=== PATIENT | female | born 1975 ===

== ENCOUNTER 2023-07-20 10:30 | Outpatient (CLI) | payer MEDICAID, SELFPAY ==
[2023-07-20 10:50] VITALS: BMI 35.4
--- NOTE | 2023-07-20 10:50 | ECG_ITS ---
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 Interpretive Statements NAME OF STUDY: LEXISCAN SESTAMIBI STRESS TEST INDICATION: [Atypical Chest Pain] Procedure: At the baseline, the blood pressure was 120/83 mmHg with a heart rate of 74 bpm. The electrocardiogram showed normal sinus rhythm, normal axis with normal ST and T's. The Lexiscan was infused over a period of 20 seconds. A total of 0.4 mg of Lexiscan was infused. The stress phase was continued for a total of 5 minutes. Heart rate was at the end of stress phase was 84 bpm and a blood pressure of 120/76 mmHg. The EKG at the peak infusion revealed normal sinus rhythm with no significant ST-T wave changes. Sestamibi was injected 20 seconds after the Lexiscan infusion. Blood pressure at the end of recovery phase was 116/77 mmHg with a heart rate of 83 bpm. Conclusion: 1. Normal EKG response to Lexiscan infusion 2. No Lexiscan induced chest pain or cardiac arrhythmia. 3. Normal blood pressure and heart rate response. 4. Sestamibi/sestamibi perfusion scan pending; see separate report. Electronically Signed On 08-06-2023 8:49:40 CDT by Donte Torres M.D. [id number]
--- NOTE | 2023-07-20 10:51 | NMCV_ITS ---
NM dk perf SPECT r/s* [id number] Lor Carrasquillo Age: 48 Gender: F : 1975 Exam Date: 07/20/2023 11:22 Ordering Phys: Grant Rojas MD Technologist: JOSE JUAN Cannon Exam Location: [facility] Indications: CHEST PAIN STRESS TEST Please see separate stress test report in [facility] for full findings IMAGE PROTOCOL Rest/Stress 1 Lexiscan Day Radiopharmaceutical Dose (mCi) Administration Site Administered by Rest: Tc-99m 10.7 IV JOSE JUAN Gale Sestamibi Stress:Tc-99m 32.5 IV JOSE JUAN Gale Sestamibi Rest: 20-Jul-2023 60 Discovery 630 Stress: 20-Jul-2023 30 Discovery 630 0.4mg Lexiscan. Images obtained in supine and prone position. SPECT RESULTS Technical Quality: Excellent Raw Data Analysis: Normal Image Corrections: No attenuation or motion correction applied Summed Stress Score: 5 Summed Rest Score: 1 Summed Difference Score: 4 PERFUSION FINDINGS There is a small area of partially reversible perfusion defect of mild to moderate intensity seen in the apical lateral and anterolateral coombs. 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 Attenuation artifact can not be ruled out. FUNCTIONAL RESULTS (calculated via Gated SPECT) Stress Image LV EF (%): 72 Stress EDV (mL):85 TID: 0.96 Stress ESV (mL):24 FUNCTIONAL FINDINGS: There is normal left ventricular systolic function. IMPRESSIONS 1. Small area of prior infarct with minimal latesha-infarct ischemia is seen in the left circumflex artery territory. Attenuation artifact can not be ruled out 2. LV systolic function is normal Donte Torres MD (Electronically Signed) Final Date: 21 July 2023 09:32 S
[2023-07-20] MEDS: regadenoson 0.4 Mg/5 ml Syringe 0.400000000000000022 MG IVP (11:59)
[2023-07-20 12:10] VITALS: BP 116/77; PULSE 80
== END 2023-07-20 10:31 | disposition home or self-care (01) ==
PROVIDERS: PCP Internal Medicine; Visit Provider Internal Medicine
DX: R07.89 Other chest pain (principal)
CPT/HCPCS: 36415; 78452; 93017; 96374; A9500; J2785

== ENCOUNTER 2023-08-18 09:59 | Emergency (ER) | payer MEDICAID, SELFPAY ==
[2023-08-18 10:06] VITALS: BP 99/75; PULSE 82; RESP 16; TEMP 36.6; O2SAT 99
--- NOTE | 2023-08-18 10:10 | XRR_ITS ---
PROCEDURE INFORMATION: Exam: XR Chest Exam date and time: 08/18/2023 10:26 AM Age: 48 years old Clinical indication: Shortness of breath; Patient HX: SOB; Lt leg swelling; Lt arm tingling TECHNIQUE: Imaging protocol: Radiologic exam of the chest. Views: 1 view. COMPARISON: No relevant prior studies available. FINDINGS: Lungs: No focal consolidation. 1.4 cm apparent pulmonary nodule projecting over the lateral right middle lung field, with a 0.7 cm central calcification. Pleural spaces: No large pleural effusion. No distinct pneumothorax. Heart/Mediastinum: Cardiomediastinal silhouette is midline and normal in size. Bones/joints: No acute osseous findings. XR/XR chest 1V [id number] IMPRESSION: 1.4 cm apparent pulmonary nodule projecting over the lateral right middle lung field, with a 0.7 cm central calcification. Recommend follow-up noncontrast CT chest for further evaluation.
--- NOTE | 2023-08-18 10:11 | ECG_ITS ---
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 Measurements Intervals [place] Rate: 75 P: 36 NV: 179 QRS: 11 QRSD: 87 T: 33 QT: 369 QTc: 413 Interpretive Statements SINUS RHYTHM LOW QRS VOLTAGE IN PRECORDIAL LEADS [QRS DEFLECTION < 1.0 mV IN CHEST LEADS] No previous ECG available for comparison Electronically Signed On 08-18-2023 19:35:01 CDT by Ortega Bautista M.D. [id number]
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
[2023-08-18 10:39] LABS: Basophils # 0.1 10^3/uL (0.0-0.1); Basophils % 0.8 %; Eosinophils # 0.3 10^3/uL (0.0-0.8); Eosinophils % 4.4 %; Hematocrit 47.9 % (36-47); Lymphocytes # 1.8 10^3/uL (0.8-4.8); Lymphocytes % 24.1 %; Mean Corpuscular Hemoglobin 30.9 pg (27-33); Mean Corpuscular Volume 93.6 fl (85-98); Mean Platelet Volume 9.6 fL (7.4-10.4); Monocytes # 0.5 10^3/uL (0.2-0.9); Monocytes % 6.2 %; Neutrophils # 4.73 10^3/uL (1.8-7.7); Neutrophils % 63.4 %; Nucleated Red Blood Cells % 0 %; Platelet Count 417 10^3/cmm (157-399); Red Blood Count 5.12 10^6/uL (3.85-5.65); Red Cell Distribution Width 13.8 % (12.1-15.1); White Blood Count 7.46 10^3/uL (3.29-11.43)
[2023-08-18 10:47] VITALS: BP 99/75; PULSE 68; RESP 16; O2SAT 95
[2023-08-18 10:57] LABS: D Dimer 0.55 ug/mLFEU (0-0.59)
[2023-08-18 11:01] LABS: Lactic Sepsis W/Reflex 0.7 mmol/L (0.5-2.2)
[2023-08-18 11:04] LABS: Troponin(5th) Baseline 8 ng/L (0-10)
--- NOTE | 2023-08-18 11:05 | CTR_ITS ---
PROCEDURE INFORMATION: Exam: CTA Chest With Contrast Exam date and time: 08/18/2023 12:06 PM Age: 48 years old Clinical indication: Pain; Chest pressure; Additional info: Chest pain, elevated ddimer TECHNIQUE: Imaging protocol: Computed tomographic angiography of the chest with contrast. Exam focused on the arteries. 3D rendering (Not supervised by radiologist): MIP and/or 3D reconstructed images were created by the technologist. Radiation optimization: All CT scans at this facility use at least one of these dose optimization techniques: automated exposure control; mA and/or kV adjustment per patient size (includes targeted exams where dose is matched to clinical indication); or iterative reconstruction. Contrast material: OMNI 350; Contrast volume: 80 ml; Contrast route: INTRAVENOUS (IV); COMPARISON: CR (CHEST, ) 08/18/2023 10:26 AM RADIATION DOSE METRICS: Total DLP (mGy-cm): 455.13 FINDINGS: Pulmonary arteries: No evidence of pulmonary artery thromboembolism. Aorta: Mild scattered calcific disease of the aorta. Thyroid: Partially imaged thyroid is normal in appearance. Lungs: Mosaic attenuation pattern throughout the bilateral lungs may represent mild pulmonary edema. 1.5 cm pulmonary nodule located in the lateral right middle lobe. This nodule is mostly calcified with a thin rim of surrounding soft tissue density. 0.3 cm calcified granuloma in the lateral left upper lobe. Pleural spaces: No pleural effusion. No pneumothorax. Heart: Heart is normal in size. No pericardial effusion. Coronary arteries: Coronary artery calcifications. Lymph nodes: Multiple calcified right hilar lymph nodes. No pathologically enlarged suspicious lymphadenopathy. Bones/joints: No acute osseous findings. Soft tissues: Atypical nodular appearance of the right breast soft tissues. CT/CT angio chest PE protcl [id number] IMPRESSION: 1. No evidence of pulmonary artery thromboembolism. 2. Mosaic attenuation pattern throughout the bilateral lungs may represent mild pulmonary edema. 3. 1.5 cm pulmonary nodule located in the lateral right middle lobe. This nodule is mostly calcified with a thin rim of surrounding soft tissue density. This nodule is strongly favored to represent a benign mostly calcified granuloma. 4. Atypical nodular appearance of the right breast soft tissues. Recommend correlation with diagnostic mammography, if not recently obtained.
[2023-08-18 11:11] LABS: Alanine Aminotransferase 15 U/L (0-33); Alkaline Phosphatase 93 U/L (35-105); Anion Gap 14.8 (5-19); Aspartate Amino Transferase 19 U/L (0-32); Blood Urea Nitrogen 7 mg/dL (6-20); C Reactive Protein 16.8 mg/L (0.0-4.9); Calcium 9.9 mg/dL (8.5-10.5); Carbon Dioxide 26 mmol/L (22-29); Chloride 101 mmol/L (98-107); Creatinine Clr Calc Pharmacy 105.6482; Glomerular Filtration Rate 89.3 mL/min (90-130); Glucose 91 mg/dL (65-115); NT Pro B Type Natriuretic Pept 44 pg/mL (0-125); Osmolality Calculated 284 mOsm/kg (285-295); Potassium 3.8 mmol/L (3.5-5.1); Sodium 138 mmol/L (136-145); Total Bilirubin 0.3 mg/dL (0.15-1.2)
[2023-08-18] MEDS: iohexol 350 mg/mL 500 mL Btl (per mL) IV (12:08)
--- NOTE | 2023-08-18 12:11 | ECG_ITS ---
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 Measurements Intervals [place] Rate: 64 P: 38 NM: 191 QRS: 27 QRSD: 95 T: 39 QT: 405 QTc: 420 Interpretive Statements SINUS RHYTHM LOW QRS VOLTAGE IN PRECORDIAL LEADS [QRS DEFLECTION < 1.0 mV IN CHEST LEADS] Compared to ECG 08/18/2023 10:08:59 No significant changes Electronically Signed On 08-18-2023 20:00:14 CDT by Ortega Bautista M.D. [id number]
[2023-08-18 12:22] VITALS: BP 135/90; PULSE 70; RESP 16; O2SAT 95
--- NOTE | 2023-08-18 12:33 | USR_ITS ---
PROCEDURE INFORMATION: Exam: US Duplex Lower Extremity Veins, Bilateral Exam date and time: 08/18/2023 11:21 AM Age: 48 years old Clinical indication: Swelling (edema) of limb; Lower extremity, bilateral; Additional info: R/O dvt TECHNIQUE: Imaging protocol: Real-time duplex ultrasound of the bilateral extremities with 2-D carr scale, color Doppler flow and spectral waveform analysis including responses to compression and other maneuvers (when performed) with image documentation. Complete exam focused on the lower extremity veins. COMPARISON: No relevant prior studies available. FINDINGS: Right deep veins: Unremarkable. The common femoral, femoral, proximal profunda femoral and popliteal veins are patent without thrombus. Normal Doppler waveforms. Normal compressibility and/or augmentation response. Left deep veins: Unremarkable. The common femoral, femoral, proximal profunda femoral and popliteal veins are patent without thrombus. Normal Doppler waveforms. Normal compressibility and/or augmentation response. Superficial veins: Greater saphenous veins at the saphenofemoral junctions are patent bilaterally without thrombus. Soft tissues: Unremarkable. US/CV venous duplex [facility] [id number] IMPRESSION: No evidence of deep vein thrombosis.
[2023-08-18 13:08] LABS: Amphetamines Screen Urine Negative (Negative); Barbiturates Screen Urine Negative (Negative); Benzodiazepines Screen Urine Negative (Negative); Cocaine Screen Urine Negative (Negative); Opiate Screen Urine Negative (Negative); PCP Screen Urine Negative (Negative); THC Screen Urine Negative (Negative)
[2023-08-18 13:29] LABS: Bilirubin Urine Neg (Negative); Blood Urine Neg (Negative); Glucose Urine UA Norm (Normal); Ketones Urine Negative (Negative); Nitrate Urine Negative (Negative); Protein Urine Neg (Negative); Urine Appearance Clear (CLEAR); Urine Color Straw (Yellow); pH Urine 6 (5-7)
[2023-08-18 13:30] LABS: Add Urine Culture? No; Bacteria Urine TRACE /hpf; Leukocyte Esterase Urine Negative (Negative); Urobilinogen Urine Norm (Negative); WBC Urine RARE /hpf (0-5)
[2023-08-18 13:45] VITALS: BP 135/90; PULSE 70; RESP 16; TEMP 36.6; O2SAT 95
== END 2023-08-18 13:47 | disposition left against medical advice (07) ==
PROVIDERS: Emergency Provider Emergency Medicine; PCP Internal Medicine
DX: R07.9 Chest pain, unspecified (principal); J81.1 Chronic pulmonary edema; R60.0 Localized edema
CPT/HCPCS: 36415; 71045; 71275; 80053; 80306; 81001; 83605; 83880; 84484; 85025; 85378; 86140; 87040; 93005; 93970; 99285; Q9967

== ENCOUNTER 2023-09-12 13:56 | Outpatient (CLI) | payer MEDICAID, SELFPAY ==
--- NOTE | 2023-09-12 14:15 | USCV_ITS ---
Lor Carrasquillo Age: 48 Gender: F : 1975 Exam Date: 09/12/2023 14:18 Ordering Phys: Donte Torres M.D ([email or web address]) Technologist: CT Exam Location: [facility] [place] Indication: cp BP: 120 / 70 HR: 124 Rhythm: Sinus Technical Quality: Adequate MEASUREMENTS (Male / Female) Normal Values 2D ECHO LVOT Diameter 2.0 cm LV Ejection Fraction MOD 2C 66.6 % LV Ejection Fraction 2C AL 66.8 % LA Diameter 3.0 cm RA Systolic Volume 4C AL 24.3 ml RA Systolic Volume 4C MOD 23.2 ml LA Sys Volume AL 37.4 cm cubed LA Sys Volume Index AL 18.0 cm cubed/m squared Aorta at Sinotubular Diameter 2.5 cm IVC Diameter 1.5 cm M-MODE LA Ao Ratio MM 1.3 AV Cusp Separation MM 1.8 cm DOPPLER AV Peak Velocity 110.0 cm/s LVOT Peak Velocity 94.0 cm/s AV Area Cont Eq vti 2.5 cm squared AV Area Cont Eq pk 2.7 cm squared MV Peak Velocity 94.0 cm/s MV Area PHT 3.6 cm squared Mitral E to A Ratio 1.3 TR Peak Velocity 117.0 cm/s TR Peak Gradient 5.5 mmHg TV Peak E Velocity 88.0 cm/s Right Atrial Pressure 3.0 mmHg Pulmonary Artery Systolic Pressu 8.5 mmHg PV Peak Velocity 75.5 cm/s FINDINGS Left Ventricle Left ventricle is normal size. LV systolic function is normal with EF of 55 to 60%. No regional wall motion abnormalities are seen. Right Ventricle Normal in size and function Right Atrium Normal in size Left Atrium Normal-sized Mitral Valve Structurally normal mitral valve. Trace mitral regurgitation. Aortic Valve Structurally normal aortic valve. No significant stenosis or regurgitation. Tricuspid Valve Insufficient TR jet to evaluate RVSP. Pulmonic Valve Not well visualized Pericardium Normal Aorta Normal in size. IVC Appears to be normal CONCLUSIONS LV systolic function is normal with EF 55 to 60%. Trace mitral regurgitation No comparison studies are available. Donte Torres MD (Electronically Signed) Final Date: 26 September 2023 19:48 S
== END 2023-09-12 13:57 | disposition home or self-care (01) ==
LOC: RAD 13:56
PROVIDERS: PCP Internal Medicine; Visit Provider Internal Medicine
DX: R06.09 Other forms of dyspnea (principal); R07.9 Chest pain, unspecified
CPT/HCPCS: 93306

== ENCOUNTER 2023-12-12 10:27 | Outpatient (CLI) | payer MEDICAID, SELFPAY ==
[2023-12-12 10:47] LABS: Basophils # 0.1 10^3/uL (0.0-0.1); Basophils % 1.2 %; Eosinophils # 0.2 10^3/uL (0.0-0.8); Eosinophils % 3.2 %; Hematocrit 47.4 % (36-47); Lymphocytes # 1.9 10^3/uL (0.8-4.8); Lymphocytes % 24.8 %; Mean Corpuscular HGB Conc 31.9 g/dL (30-55); Mean Corpuscular Hemoglobin 30.4 pg (27-33); Mean Corpuscular Volume 95.4 fl (85-98); Mean Platelet Volume 9.9 fL (7.4-10.4); Monocytes # 0.4 10^3/uL (0.2-0.9); Monocytes % 5.9 %; Neutrophils # 4.78 10^3/uL (1.8-7.7); Neutrophils % 64.2 %; Nucleated Red Blood Cells % 0 %; Platelet Count 348 10^3/cmm (157-399); Red Blood Count 4.97 10^6/uL (3.85-5.65); Red Cell Distribution Width 14.6 % (12.1-15.1); White Blood Count 7.45 10^3/uL (3.29-11.43)
[2023-12-12 11:01] LABS: INR 1.02 (0.83-1.21); Prothrombin Time (Patient) 13.7 Seconds (12.0-15.1)
[2023-12-12 11:07] LABS: Blood Urea Nitrogen 11 mg/dL (6-20); Calcium 9.3 mg/dL (8.5-10.5); Carbon Dioxide 24 mmol/L (22-29); Chloride 106 mmol/L (98-107); Glomerular Filtration Rate 89.3 mL/min (90-130); Glucose 89 mg/dL (65-115); Osmolality Calculated 289 mOsm/kg (285-295); Sodium 140 mmol/L (136-145)
[2023-12-12 11:16] LABS: Anion Gap 15.1 (5-19); Potassium 5.1 mmol/L (3.5-5.1)
== END 2023-12-12 10:28 | disposition home or self-care (01) ==
LOC: LAB 10:28
PROVIDERS: PCP Internal Medicine; Visit Provider Internal Medicine
DX: R06.09 Other forms of dyspnea (principal); I20.0 Unstable angina; R58 Hemorrhage, not elsewhere classified
CPT/HCPCS: 36415; 80048; 85025; 85610

== ENCOUNTER 2023-12-19 06:04 | Outpatient (CLI) | payer MEDICAID, SELFPAY ==
[2023-12-19] VITALS (15 sets, daily range): BP systolic 119–160; BP diastolic 78–109; PULSE 60–70; RESP 12–18; TEMP 36.8; O2SAT 95–99; BMI 37.3
--- NOTE | 2023-12-19 06:00 | XACV_ITS ---
Exam Room: 2 Ht: 160 cm Wt: 96 kg BSA: 2.11 m2 Gender: Female : 1975 Any Known Allergies: Latex Exam Priority: Routine Procedure(s): Procedure Description: Diagnostic procedure Procedure Description: Left Heart Catheterization Procedure Description: Left ventriculography Procedure Description: Coronary Angiography Diagnostic Cath Status: Elective Diagnostic Findings * No significant disease noted in the Left Main, Left Anterior Descending, Right, or Circumflex coronary arteries. * Coronary angiography shows right dominance. Conclusions 1. No significant disease noted in the Left Main, Left Anterior Descending, Right, or Circumflex coronary arteries. 2. Normal left ventricular systolic function. Ejection fraction of 55%. Recommendations * Aggressive risk factor modification. * High intensity statin therapy. * Outpatient cardiology follow up in 2 weeks. Interventional RX Recommendation: medical therapy and/or counseling Diagnostic RX Recommendation: medical therapy and/or counseling Anticoagulation: Heparin Ventriculography Ejection Fraction: 55.0 % Pressures Phase:Rest AO : 130 / 81 ( 103 ) @ 9:21:00 AM 113 / 88 ( 101 ) @ 9:22:00 AM 129 / 82 ( 103 ) @ 9:27:00 AM 129 / 83 ( 103 ) @ 9:27:00 AM LV : 136 / 0 / 23 @ 9:26:00 AM 127 / 15 / 28 @ 9:26:00 AM 128 / 14 / 27 @ 9:27:00 AM Valves Phase:DefaultPhase AV : 0.0 @ 8:32:08 AM 0.0 @ 8:32:08 AM AV Mean Gradient: 0.0 @ 8:32:08 AM Clinical Evaluation EBL: 5mL-10mL Procedural Details Procedure Consent Obtained. Pre-Procedure Time Out. Identified patient by full name and date of as verbalized by the patient/guarantor. Does the consent match the physician's order: Yes. Inpatient/Outpatient History & Physical on Chart: Yes. Accurate & Complete Informed Consent: Yes. If H&P is completed, is and addenduem needed: No; If yes, is the addendum complete: N/A. Visualize and Verify Site with Patient/Guarantor: N/A. Relevant Radiology Images available: Yes. Pre-op teaching completed and patient verbalized understanding. The risks, benefits, and alternatives of sedation and/or procedure were discussed by physician. The patient agrees to continue. Procedure started. Physician arrived. 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 Chest Pain Symptom Assessment: Typical Angina Symptoms. Correct patient, site and procedure confirmed by cath team. Current diagnosis: Chest Pain. PERRLA. 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 Lungs clear x 5 lobes. IV Site on Arrival: 20 gauge in the left anticubital. IV Fluids: 0.9% NaCl at KVO. 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 Pre Procedural Pulses: bilateral dorsalis pedis was 3+. Pre Procedural Pulses: bilateral posterior tibial was 3+. Pre Procedural Pulses: bilateral radial was 3+. Oxygen started at 2liters/min via nasal canula. right groin was prepped with chloroprep then draped in the usual sterile fashion. right radial was prepped with chloroprep then draped in the usual sterile fashion. Baseline sample Acquired. HR: 59 BPM. Current Diagnosis : Chest Pain. Physician scrubbed in. Immediate Pre-Procedure Time Out. Correct Patient: Yes; Correct Procedure: Yes; Correct Site: Yes; Correct Patient Position: Yes; Correct Supplies: Yes; Dried Flammable Prep: Yes; Blood Products Available: N/A;. Lidocaine 1% infiltrated to the right radial. Arterial access obtained. A 5 [place] TIG catheter in over wire. Multiple views taken of left coronary artery. Catheter redirected to the RCA. Multiple views taken of right coronary artery. Catheter removed over the exchange wire. A 5 [place] Angled Pig catheter in over wire. EDP Sample taken: LV 136/-1,23; HR: 68 BPM; SpO2: 95%. LV gram performed in MENJIVAR @ 10 mL/second for a total of 30 mL. EDP Sample taken: LV 127/15,28; HR: 69 BPM; SpO2: 94%. Pullback taken: LV 128/14,27; AO 129/82(103); Mean: 0mmHg, Peak to Peak: 0mmHg, SEP: 10sec/min; HR: 69 BPM; SpO2: 95%. Catheter removed over the exchange wire. A TR Band was successful obtaining hemostatsis at the Right Radial artery insertion site. PERRLA. 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 No VTE prophylaxis required. Medication's Wasted: Lidocaine 1% = 18 mL. Medication's Wasted: Nitro = 49.7 mcg. Medication's Wasted: Heparin = 1000 units. Medication's Wasted: Other = Fentanyl 50mcg Versed 1 mg. Total IV fluids: 50 mL. Post-op diagnosis: Non-obstructive CAD. Complications: None. Estimated blood loss: 5mL-10mL. Responsiveness - Normal response to verbal stimuli; alert and oriented, PERRLA. Airway - Unaffected, no intervention required; spontaneous ventilation. Circulation: W/N/L, pulses unchanged. Nausea/Vomiting: No. Procedure completed. Patient transferred by wheelchair to CPRU. Vital chart was stopped. Access Site Site: Right Radial artery Sheath Size: 6 Fr Hemostasis Method: TR Band Hemostasis Success: Successful Procedure Medications Start: 8:14 AM Stop: 8:14 AM Medication: Fentanyl Amount: 50 mcg Route: I.V. Start: 8:14 AM Stop: 8:14 AM Medication: Versed Amount: 1 mg Route: I.V. Start: 8:17 AM Stop: 8:17 AM Medication: Nitrogylcerin Amount: 300 mcg Route: I.A. Start: 8:20 AM Stop: 8:20 AM Medication: Heparin Amount: 5000 units Route: I.V. I, the attending physician, have reviewed and verified all procedure medications. Yes, all medications given per verbal order History/Risk Factors Hypertension: Yes Dyslipidemia: No Peripheral Arterial Disease (PAD): No Myocardial Infarction (GA): No Obesity: No Renal Disease: No Tobacco Use: Current/Recent(w/in 1 year) Prior Interventions PCI: No CABG: No Valve Surgery: No Report Signatures Finalized by Donte Torres MD on 12/20/2023 04:47 PM
[2023-12-19] MEDS: diphenhydrAMINE 50 mg Capsule PO (06:35)
[2023-12-19] MEDS: aspirin 325 mg Tablet PO (06:36)
--- NOTE | 2023-12-19 08:01 | W.PM.OPSUD ---
Surgery/Procedure H&P Update DATE OF PROCEDURE: December 19, 2023 DATE H&P PERFORMED: 12/05/23 H&P UPDATE INFORMATION: I have reviewed H&P completed within last 30 days, I have examined patient prior to procedure and No changes to prior documentation PREOP DIAGNOSIS: Worsening angina/abnormal stress test PRIMARY INDICATION FOR PROCEDURE: Worsening angina/abnormal stress test PLANNED PROCEDURE: Operation Date: 12/19/23 07:00 Proposed Procedures p Cardiac Catheterization - [facility] w/wo LV & Coros(Left) - Donte Torres M.D PATIENT REASSESSED PRIOR TO SEDATION, WITH NO CHANGE NOTED: Yes PHYSICAL EXAM: alert, oriented x 3, clear to auscultation bilaterally and regular rate & rhythm AIRWAY EVAL/ANESTHESIA PLAN: normal airway, ASA III, Local Anesthesia, Risks, benefits & alternatives of sedation and/or procedure discussed and Patient agrees to continue as planned ADDITIONAL INFORMATION: Moderate sedation
--- NOTE | 2023-12-19 10:45 | PC.NURSE ---
TR band off @ 1045.
--- NOTE | 2023-12-19 10:45 | PC.NURSE ---
No hematoma or bleeding noted at this time.
== END 2023-12-19 11:53 | disposition home or self-care (01) ==
PROVIDERS: PCP Internal Medicine; Visit Provider Internal Medicine
DX: R94.39 Abnormal result of other cardiovascular function study (principal); I10 Essential (primary) hypertension; F17.200 Nicotine dependence, unspecified, uncomplicated
CPT/HCPCS: 93458; 96374; 96375; 99152; 99153; C1769; C1887; C1894; J1644; J2250; J3010; J3490; J7030; Q0163; Q9967

== ENCOUNTER → 2023-12-26 14:50 | Outpatient (BNVA) | payer MEDICAID, SELFPAY | PROVIDERS: PCP Internal Medicine; Visit Provider Nurse Practitioner Family | DX: R06.09 Other forms of dyspnea (principal) | CPT/HCPCS: 36415; 80048 ==

== ENCOUNTER 2024-03-18 12:58 | Outpatient (CLI) | payer MEDICAID, SELFPAY ==
--- NOTE | 2024-03-18 13:08 | XRR_ITS ---
PROCEDURE INFORMATION: Exam: XR Bilateral Knees, Standing, Anteroposterior Exam date and time: 03/18/2024 1:14 PM Age: 48 years old Clinical indication: Pain; Knee; Left; Additional info: Pain in L knee TECHNIQUE: Imaging protocol: Radiologic exam of the bilateral knees. Views: Standing frontal. COMPARISON: No relevant prior studies available. FINDINGS: Bones/joints: Frontal views of both knees are unremarkable. No fracture dislocation or other osseous abnormality Soft tissues: Normal. XR/XR knee standing [id number] IMPRESSION: Unremarkable study
--- NOTE | 2024-03-18 13:08 | XRR_ITS ---
PROCEDURE INFORMATION: Exam: XR Right Hand Exam date and time: 03/18/2024 1:14 PM Age: 48 years old Clinical indication: Pain; Bilateral; Prior surgery; Surgery date: 6+ months; Surgery type: Carpal tunnel surgery on both hands; Additional info: Bilat hand pain/arthritis TECHNIQUE: Imaging protocol: Radiologic exam of the right hand. Views: 1 or 2 views. COMPARISON: No relevant prior studies available. FINDINGS: Bones/joints: No fracture or dislocation. There are mild degenerative changes, involving mainly the 1st CMC joint and radial aspect of the midcarpal joint, manifested by joint space narrowing, subchondral sclerosis and periarticular osteophytes. Soft tissues: Normal. XR/XR hand RT 2V [id number] IMPRESSION: 1. No acute findings. 2. Mild osteoarthrosis, involving mainly the 1st CMC joint and radial aspect of the midcarpal joint.
--- NOTE | 2024-03-18 13:08 | XRR_ITS ---
PROCEDURE INFORMATION: Exam: XR Left Hand Exam date and time: 03/18/2024 1:14 PM Age: 48 years old Clinical indication: Pain; Bilateral; Prior surgery; Surgery date: 6+ months; Surgery type: Carpal tunnel surgery on both hands; Additional info: Bilat hand pain/arthritis TECHNIQUE: Imaging protocol: Radiologic exam of the left hand. Views: 1 or 2 views. COMPARISON: No relevant prior studies available. FINDINGS: Bones/joints: Normal. Soft tissues: Normal. XR/XR hand LT 2V [id number] IMPRESSION: No acute findings.
== END 2024-03-18 12:59 | disposition home or self-care (01) ==
LOC: RAD 13:02
PROVIDERS: PCP Internal Medicine; Visit Provider Internal Medicine
DX: M19.049 Primary osteoarthritis, unspecified hand (principal); M25.562 Pain in left knee
CPT/HCPCS: 73120; 73565

== ENCOUNTER 2024-04-22 12:30 | Outpatient (CLI) | payer MEDICAID, SELFPAY ==
--- NOTE | 2024-04-22 12:35 | MM_ITS ---
WS: [id number] Bilateral screening 3D tomosynthesis digital mammogram, 04/22/2024 12:38 PM Clinical Data: SCREENING Comparison: None. Findings: No spiculated masses or clustered calcifications are seen. There are no secondary signs of carcinoma . There are lymph nodes in both axilla. MM/MM scr BI tomosynthesis [id number] Impression: Negative bilateral mammogram with no prior exam for review. Recommend annual screening mammograms. BIRADS: 1 - Negative. FOLLOW UP: 1 Year Follow-up DENSITY: There are scattered areas of fibroglandular density. The CAD purchase order checker was used
== END 2024-04-22 12:31 | disposition home or self-care (01) ==
LOC: RAD 12:31
PROVIDERS: PCP Internal Medicine; Visit Provider Internal Medicine
DX: Z12.31 Encounter for screening mammogram for malignant neoplasm of breast (principal)
CPT/HCPCS: 77063; 77067

== ENCOUNTER 2024-05-22 13:33 | Outpatient (CLI) | payer MEDICAID, SELFPAY ==
--- NOTE | 2024-05-22 13:37 | MR_ITS ---
WS: [id number] MRI LUMBAR SPINE NONCONTRAST HISTORY: LUMBAR RADICULOPATHY COMPARISON: None available. TECHNIQUE: Sagittal and axial multisequence imaging is submitted. Mild shaped curvature thoracolumbar spine. Chronic degenerative changes with fatty replacement and po rtions of the L3, L4 and L5 vertebral bodies. No acute fracture or marrow edema. Marked disc space narrowing and desiccation at L4-5. Conus terminates normally at L1-2 disc level. L1-L2: Mild facet disease without disc protrusion. Mild bilateral foraminal stenosis. L2-L3: Diffuse annular disc bulge with bilateral foraminal disc protrusions, LEFT greater than RIGHT. Mild subarticular recess encroachment. Moderate bilateral foraminal stenosis. Ligamentum flavum and facet joint arthritis. L3-L4: Marked annular disc bulging with a moderate LEFT foraminal disc protrusion. Small central disc protrusion deforming the ventral thecal sac. Marked ligamentum flavum and facet arthritis. Disc cont acts the traversing L4 nerve roots. Mild to moderate bilateral foraminal stenosis. Mild disc contact on the LEFT exiting L3 nerve root. L4-L5: Marked annular disc bulging with marked ligamentum flavum and facet arthritis. Small central d isc protrusion. Small disc osteophyte complexes in the foramina. Mild central, bilateral subarticular recess and foraminal stenosis. L5-S1: Broad-based LEFT foraminal disc protrusion with fissure. Complete effacement of fat in the LEF T foramen by disc protrusion. Severe LEFT and mild RIGHT foraminal stenosis. Normal paravertebral soft tissues. MR/MR lumbar spine wo con* [id number] IMPRESSION: 1. L5-S1: LEFT foraminal disc protrusion at L5-S1 with complete effacement of fat. Severe LEFT foraminal stenosis. Mild RIGHT foraminal stenosis. 2. L3-4: Moderate LEFT foraminal disc protrusion and a small central disc prot rusion. Mild to moderate bilateral foraminal stenosis. Mild disc contact on the traversing L4 nerve roots and LEFT exiting L3 nerve root. 3. L2-3: Moderate bilateral foraminal stenosis with small bilateral foraminal disc protrusions. 4. Mild bilateral foraminal stenosis at L1-2. 5. L4-5: Mild central, bilateral subarticular recess and foraminal stenosis. 6. Advanced chronic degenerative changes involving the L4-5 disc and vertebral bodies.
== END 2024-05-22 13:34 | disposition home or self-care (01) ==
PROVIDERS: PCP Internal Medicine; Visit Provider Internal Medicine
DX: M54.16 Radiculopathy, lumbar region (principal); M51.27 Other intervertebral disc displacement, lumbosacral region; M48.07 Spinal stenosis, lumbosacral region; M51.26 Other intervertebral disc displacement, lumbar region; M48.061 Spinal stenosis, lumbar region without neurogenic claudication; M47.896 Other spondylosis, lumbar region; R93.7 Abnormal findings on diagnostic imaging of other parts of musculoskeletal system; M43.8X5 Other specified deforming dorsopathies, thoracolumbar region; M51.369 Other intervertebral disc degeneration, lumbar region without mention of lumbar back pain or lower extremity pain; M25.78 Osteophyte, vertebrae
CPT/HCPCS: 72148

== ENCOUNTER → 2024-06-26 13:08 | Outpatient (BNVA) | payer MEDICAID, SELFPAY | PROVIDERS: PCP Internal Medicine; Referring Provider Internal Medicine; Visit Provider Orthopaedic Surgery | DX: M54.50 Low back pain, unspecified (principal) | CPT/HCPCS: 72110 ==

== ENCOUNTER → 2024-08-19 14:00 | Outpatient (BNVA) | payer MEDICAID, SELFPAY | PROVIDERS: PCP Internal Medicine; Visit Provider Orthopaedic Surgery | DX: M54.50 Low back pain, unspecified (principal) | CPT/HCPCS: 72110 ==

== ENCOUNTER 2025-02-11 11:15 | Outpatient (CLI) | payer MEDICAID, SELFPAY | END 2025-02-11 11:16 | disposition home or self-care (01) | LOC: RT 11:16 | PROVIDERS: PCP Internal Medicine; Visit Provider Internal Medicine | DX: R06.02 Shortness of breath (principal) | CPT/HCPCS: 94010 ==